=== PATIENT | female | born 1965 | race Caucasian/White ===

== ENCOUNTER 2017-03-24 17:53 | Emergency (ER) | payer OTHER ==
[~2017-03-24] VITALS: Ht 160 cm; Wt 69.9 kg
[~2017-03-24 17:53] MED LIST: AMITRIPTYLINE150 MG PO; ASPIRIN81 MG PO; ATORVASTATIN CA10 MG PO; CLONAZEPAM0.5 MG PO; Calcium Carbonate 500MG Chew PO; DICYCLOMINE HCL20 MG PO; FAMOTIDINE20 MG PO; FUROSEMIDE40 MG PO; GABAPENTIN300 MG PO; GABAPENTIN400 MG PO; GLIMEPIRIDE2 MG PO; HYDRALAZINE HCL25 MG PO; IPRATROPIU0.2 MG/1 M NEB; Insulin Detemir SQ; Insulin Lispro SQ; LEVEMIR100 UNIT/1; LISINOPRIL10 MG PO; METFORMIN HCL500 MG PO; METOLAZONE5 MG PO; MIRTAZAPINE15 MG PO; NEXIUM40 MG PO; NIFEDICAL XL PO; NOVOLOG100 UNIT/1; POTASSIUM CHLO20 ME1 PO; PROCARDIA XL30 MG PO; PROVENTIL HFA6.7 GM INH; QVAR INFIL; SPIRONOLACTONE25 MG PO; TRAZODONE HCL100 MG PO; VENLAFAXINE HCL75 M2 PO
== END 2017-03-24 20:35 | disposition short-term general hospital (02) ==
LOC: ER 17:59
DX: Z04.3 Encounter for examination and observation following other accident (principal)